=== PATIENT | male | born 1970 | race Caucasian/White ===

== ENCOUNTER → 2022-11-20 | Outpatient (CLI) | payer BC ==
[~2022-11-20] MED LIST: PROHANCE 279.3MG/ML 15ML VIAL ONE; PROHANCE 279.3MG/ML 5ML VIAL ONE
== END ==
LOC: M PLAIMG 08:24
PROVIDERS: ATTEND Physician Assistant
DX: R97.20 Elevated prostate specific antigen [PSA] (principal)
CPT/HCPCS: 72197; A9576